=== PATIENT | female | born 1950 ===

== ENCOUNTER 2020-10-01 18:10 | Inpatient (IN) ==
[2020-10-01] MEDS ORDERED: ONDANSETRON 4 MG/2 ML VIAL IV STA (18:43)
[2020-10-01] MEDS ORDERED: PANTOPRAZOLE 40 MG VIAL IV STA (18:43)
[2020-10-01] MEDS ORDERED: SODIUM CHLORIDE 0.9% 500 ML IV STA (18:43)
[2020-10-01 19:42] LABS: Basophils % 0.5 % (0.0-0.8); Eosinophils # 0.1 10*3/uL (0.0-0.87); Eosinophils % 0.9 % (0.00-10.9); Hematocrit 42.9 VOL% (35.7-47.0); Hemoglobin 14.4 GM/DL (12.0-16.0); Immature Granulocytes % 0.9 %; Immature Granulocytes Absolute 0.07 #; Lymphocytes # 0.9 10*3/uL (1.4-4.0); Lymphocytes % 11.1 % (21.3-54.2); Mean Corpuscular HGB Conc 33.6 GM/DL (32-36); Mean Platelet Volume 10.2 FL (9.6-12.0); Monocytes % 9.4 % (1.7-12.7); Neutrophils % 77.2 % (38.7-73.9); Platelet Count 245 T/CUMM (130-400); Red Blood Count 4.47 MC/CUMM (3.8-5.5); Red Cell Distribution Width 13.4 % (9.3-17.3); White Blood Count 7.8 T/CUMM (4-12)
[2020-10-01 20:40] LABS: Albumin 2.8 G/DL (3.4-5.0); Bilirubin,Total 5.7 MG/DL (0.2-1.0); Calcium 8.8 MG/DL (8.5-10.1); Osmolality,Calculated 276.5 MOS/KG (273-304); Potassium 3.5 MMOL/L (3.5-5.1); Total Protein 6.5 G/DL (6.4-8.2)
[2020-10-01] MEDS ORDERED: ONDANSETRON 4 MG/2 ML VIAL IV PRN (21:57)
[2020-10-01] MEDS ORDERED: GLUCAGON 1 MG VIAL IM PRN (21:57)
[2020-10-01] MEDS ORDERED: DEXTROSE 50% 25 GM/50 ML VIAL IV PRN (21:57)
[2020-10-01] MEDS ORDERED: PIPERACILLIN/TAZOBACTAM 3,375 MG VIAL IV ONE (23:41)
[2020-10-02 00:24] LABS: Bacteria,Urine Occasional /HPF (Few); Blood, Urine Negative (Negative); Glucose,Urine (UA) Negative (Negative); Ketones,Urine Negative (Negative); Mucus,Urine Few /LPF (Occasional); Nitrite,Urine Negative (Negative); Protein,Urine Negative; RBC,Urine 1 /HPF (0-4); Squamous Epithelial Cell,Urine Occasional /HPF (0-10); Urine Appearance CLEAR (Clear); Urine Color Amber (Yellow); Urine Specific Gravity 1.011 (1.001-1.035); Urine Urobilinogen < 2.0 EU/DL (0.2-1.0)
[2020-10-02 00:27] LABS: Bilirubin,Urine Small mg/dL (Negative)
[2020-10-02] MEDS ORDERED: SODIUM CHLORIDE 0.9% 1,000 ML IV ONE (01:26)
[2020-10-02] MEDS ORDERED: MORPHINE 4 MG/1 ML VIAL IV PRN ×2 (02:12→02:26)
[2020-10-02] MEDS: PIPERACILLIN/TAZOBACTAM 3.375 MG in SODIUM CHLORIDE 0.9% 100 ML IV SCH ×4 (02:38→23:45)
[2020-10-02] MEDS: SODIUM CHLORIDE 0.9% 1,000 ML IV SCH ×3 (03:06→14:54)
[2020-10-02 05:51] LABS: Basophils % 0.3 % (0.0-0.8); Eosinophils # 0.1 10*3/uL (0.0-0.87); Eosinophils % 1.1 % (0.00-10.9); Hemoglobin 12.8 GM/DL (12.0-16.0); Immature Granulocytes % 0.8 %; Immature Granulocytes Absolute 0.06 #; Lymphocytes # 0.7 10*3/uL (1.4-4.0); Lymphocytes % 9.5 % (21.3-54.2); Mean Corpuscular HGB Conc 33.7 GM/DL (32-36); Mean Platelet Volume 9.8 FL (9.6-12.0); Monocytes % 8.4 % (1.7-12.7); Neutrophils % 79.9 % (38.7-73.9); Platelet Count 209 T/CUMM (130-400); Red Blood Count 3.96 MC/CUMM (3.8-5.5); Red Cell Distribution Width 13.6 % (9.3-17.3); White Blood Count 7.1 T/CUMM (4-12)
[2020-10-02 06:09] LABS: PT Patient Result 11.4 SECS (10.5-12.0); Partial Thromboplastin Time 26.3 SECS (23.9-33.8)
[2020-10-02 06:17] LABS: Albumin 2.2 G/DL (3.4-5.0); Bilirubin,Total 5.8 MG/DL (0.2-1.0); Calcium 8.2 MG/DL (8.5-10.1); Osmolality,Calculated 278.4 MOS/KG (273-304); Potassium 3.5 MMOL/L (3.5-5.1); Total Protein 6.1 G/DL (6.4-8.2)
[2020-10-02] MEDS: amLODIPine 5 MG TABLET PO SCH (09:52)
[2020-10-02] MEDS: ATROPINE 1 % OPH SOLN 5 ML BOTTLE RIGHT EYE SCH (14:53)
[2020-10-02] MEDS: BIMATOPROST 0.01% OPH SOLN 2.5 ML BOTTLE RIGHT EYE SCH ×2 (14:53→21:37)
[2020-10-02] MEDS: OFLOXACIN 0.3% OPH SOLN 5 ML BOTTLE RIGHT EYE SCH ×2 (14:53→21:37)
[2020-10-02] MEDS ORDERED: ENOXAPARIN 40 MG/0.4 ML SYRINGE SUBCUT SCH (21:00)
[2020-10-03] MEDS: ATROPINE 1 % OPH SOLN 5 ML BOTTLE RIGHT EYE SCH ×3 (01:18→20:48)
[2020-10-03 05:48] LABS: Basophils % 0.4 % (0.0-0.8); Eosinophils # 0.1 10*3/uL (0.0-0.87); Eosinophils % 1.5 % (0.00-10.9); Hematocrit 38.3 VOL% (35.7-47.0); Hemoglobin 12.6 GM/DL (12.0-16.0); Immature Granulocytes % 1.7 %; Immature Granulocytes Absolute 0.12 #; Lymphocytes # 0.7 10*3/uL (1.4-4.0); Lymphocytes % 9.6 % (21.3-54.2); Mean Corpuscular HGB Conc 32.9 GM/DL (32-36); Mean Platelet Volume 9.9 FL (9.6-12.0); Monocytes % 7.3 % (1.7-12.7); Neutrophils % 79.5 % (38.7-73.9); Platelet Count 215 T/CUMM (130-400); Red Blood Count 3.95 MC/CUMM (3.8-5.5); Red Cell Distribution Width 13.9 % (9.3-17.3); White Blood Count 6.9 T/CUMM (4-12)
[2020-10-03 05:56] LABS: PT Patient Result 11.4 SECS (10.5-12.0)
[2020-10-03 06:06] LABS: Albumin 2.2 G/DL (3.4-5.0); Bilirubin,Total 6.6 MG/DL (0.2-1.0); Calcium 8.4 MG/DL (8.5-10.1); Osmolality,Calculated 282.1 MOS/KG (273-304); Potassium 3.7 MMOL/L (3.5-5.1); Total Protein 5.9 G/DL (6.4-8.2)
[2020-10-03] MEDS: PIPERACILLIN/TAZOBACTAM 3.375 MG in SODIUM CHLORIDE 0.9% 100 ML IV SCH ×2 (06:44→20:42)
[2020-10-03 08:32] LABS: Hepatitis B Core IgM Quant 0.08 Index; Hepatitis B Surface Ag Quant < 0.10 Index; Hepatitis B Surface Ag Result Non-Reactive (NonReactive); Hepatitis C Virus Ab Quant 0.04 Index; Hepatitis C Virus Ab Result Non-Reactive (NonReactive)
[2020-10-03] MEDS: OFLOXACIN 0.3% OPH SOLN 5 ML BOTTLE RIGHT EYE SCH ×2 (09:10→20:39)
[2020-10-03] MEDS: amLODIPine 5 MG TABLET PO SCH (09:10)
[2020-10-03] MEDS ORDERED: hydrALAZINE 20 MG/1 ML VIAL IV PRN (15:20)
[2020-10-03] MEDS: SODIUM CHLORIDE 0.9% 1,000 ML IV SCH (16:56)
[2020-10-03] MEDS: prednisoLONE ACETATE 1% OPH SUSP 5 ML BOTTLE RIGHT EYE SCH ×5 (16:56→23:22)
[2020-10-03] MEDS: BIMATOPROST 0.01% OPH SOLN 2.5 ML BOTTLE RIGHT EYE SCH (20:39)
[2020-10-03] MEDS: acetaZOLAMIDE 250 MG TABLET PO SCH (20:41)
[2020-10-03] MEDS: TIMOLOL 0.5% OPH SOLN 5 ML BOTTLE RIGHT EYE SCH (20:48)
[2020-10-04] MEDS: SODIUM CHLORIDE 0.9% 1,000 ML IV SCH ×3 (01:43→23:02)
[2020-10-04] MEDS: prednisoLONE ACETATE 1% OPH SUSP 5 ML BOTTLE RIGHT EYE SCH ×12 (01:44→23:03)
[2020-10-04 05:17] LABS: Basophils % 0.5 % (0.0-0.8); Eosinophils # 0.2 10*3/uL (0.0-0.87); Eosinophils % 3.2 % (0.00-10.9); Hematocrit 38.4 VOL% (35.7-47.0); Hemoglobin 12.7 GM/DL (12.0-16.0); Immature Granulocytes % 2.3 %; Immature Granulocytes Absolute 0.17 #; Lymphocytes # 0.7 10*3/uL (1.4-4.0); Lymphocytes % 9.3 % (21.3-54.2); Mean Corpuscular HGB Conc 33.1 GM/DL (32-36); Mean Corpuscular Volume 94.6 FL (87-102); Mean Platelet Volume 9.9 FL (9.6-12.0); Monocytes % 7.4 % (1.7-12.7); Neutrophils % 77.3 % (38.7-73.9); Platelet Count 241 T/CUMM (130-400); Red Blood Count 4.06 MC/CUMM (3.8-5.5); Red Cell Distribution Width 13.9 % (9.3-17.3); White Blood Count 7.5 T/CUMM (4-12)
[2020-10-04 05:29] LABS: PT Patient Result 11.5 SECS (10.5-12.0)
[2020-10-04] MEDS: PIPERACILLIN/TAZOBACTAM 3.375 MG in SODIUM CHLORIDE 0.9% 100 ML IV SCH ×2 (05:54→16:30)
[2020-10-04 05:56] LABS: Albumin 2.1 G/DL (3.4-5.0); Calcium 8.2 MG/DL (8.5-10.1); Osmolality,Calculated 284.3 MOS/KG (273-304); Potassium 3.4 MMOL/L (3.5-5.1); Total Protein 5.9 G/DL (6.4-8.2)
[2020-10-04] MEDS ORDERED: INDOMETHACIN SUPP 50 MG SUPP RECTAL ONE ×2 (06:24→08:00)
[2020-10-04] MEDS ORDERED: hydrALAZINE 20 MG/1 ML VIAL IV PRN (08:37)
[2020-10-04] MEDS: acetaZOLAMIDE 250 MG TABLET PO SCH ×3 (08:38→20:30)
[2020-10-04] MEDS: SPIRONOLACTONE 25 MG TABLET PO SCH (08:39)
[2020-10-04] MEDS: amLODIPine 5 MG TABLET PO SCH (08:39)
[2020-10-04] MEDS: OFLOXACIN 0.3% OPH SOLN 5 ML BOTTLE RIGHT EYE SCH ×2 (10:13→20:30)
[2020-10-04] MEDS: TIMOLOL 0.5% OPH SOLN 5 ML BOTTLE RIGHT EYE SCH ×2 (10:13→20:31)
[2020-10-04] MEDS: ATROPINE 1 % OPH SOLN 5 ML BOTTLE RIGHT EYE SCH ×2 (10:13→20:30)
[2020-10-04] MEDS: POTASSIUM CHLORIDE RIDER 10 MEQ/100 ML PREMIX IV SCH ×2 (10:43→14:51)
[2020-10-04] MEDS: LACTATED RINGERS 1,000 ML IV SCH (12:50)
[2020-10-04] MEDS ORDERED: fentaNYL 100 MCG/2 ML VIAL ONE ×2 (13:47→14:48)
[2020-10-04] MEDS ORDERED: ePHEDrine 50 MG/ML VIAL ONE (13:52)
[2020-10-04] MEDS ORDERED: GLYCOPYRROLATE 0.4 MG/2 ML VIAL ONE ×2 (14:47→14:51)
[2020-10-04] MEDS ORDERED: NEOSTIGMINE 10 MG/10 ML VIAL ONE (14:47)
[2020-10-04] MEDS ORDERED: DEXAMETHASONE 4 MG/1 ML VIAL ONE (14:48)
[2020-10-04] MEDS ORDERED: ONDANSETRON 4 MG/2 ML VIAL ONE (14:48)
[2020-10-04] MEDS ORDERED: propofoL 200 MG/20 ML VIAL IV ONE (14:48)
[2020-10-04] MEDS ORDERED: SEVOFLURANE 1 UNIT/15 MINUTE INH ONE (14:52)
[2020-10-04] MEDS: BIMATOPROST 0.01% OPH SOLN 2.5 ML BOTTLE RIGHT EYE SCH (20:30)
[2020-10-05] MEDS: prednisoLONE ACETATE 1% OPH SUSP 5 ML BOTTLE RIGHT EYE SCH ×12 (01:40→23:35)
[2020-10-05 05:49] LABS: Basophils % 0.2 % (0.0-0.8); Eosinophils % 0.2 % (0.00-10.9); Hematocrit 36.7 VOL% (35.7-47.0); Hemoglobin 12.3 GM/DL (12.0-16.0); Immature Granulocytes % 4.2 %; Immature Granulocytes Absolute 0.23 #; Lymphocytes # 0.6 10*3/uL (1.4-4.0); Lymphocytes % 10.2 % (21.3-54.2); Mean Corpuscular HGB Conc 33.5 GM/DL (32-36); Mean Corpuscular Volume 95.3 FL (87-102); Mean Platelet Volume 10.2 FL (9.6-12.0); Neutrophils % 79.2 % (38.7-73.9); Platelet Count 240 T/CUMM (130-400); Red Blood Count 3.85 MC/CUMM (3.8-5.5); Red Cell Distribution Width 14.4 % (9.3-17.3); White Blood Count 5.5 T/CUMM (4-12)
[2020-10-05 06:16] LABS: Albumin 2.1 G/DL (3.4-5.0); Bilirubin,Total 2.9 MG/DL (0.2-1.0); Calcium 8.2 MG/DL (8.5-10.1); Osmolality,Calculated 278.5 MOS/KG (273-304); Potassium 3.6 MMOL/L (3.5-5.1); Total Protein 6.2 G/DL (6.4-8.2)
[2020-10-05] MEDS: SODIUM CHLORIDE 0.9% 1,000 ML IV SCH ×2 (07:39→15:18)
[2020-10-05] MEDS: LACTATED RINGERS 1,000 ML IV SCH (07:39)
[2020-10-05] MEDS: acetaZOLAMIDE 250 MG TABLET PO SCH ×3 (08:42→20:23)
[2020-10-05] MEDS: SPIRONOLACTONE 25 MG TABLET PO SCH (08:42)
[2020-10-05] MEDS: amLODIPine 5 MG TABLET PO SCH (08:42)
[2020-10-05] MEDS: ATROPINE 1 % OPH SOLN 5 ML BOTTLE RIGHT EYE SCH ×2 (08:45→20:23)
[2020-10-05] MEDS: TIMOLOL 0.5% OPH SOLN 5 ML BOTTLE RIGHT EYE SCH ×2 (08:45→20:23)
[2020-10-05] MEDS: OFLOXACIN 0.3% OPH SOLN 5 ML BOTTLE RIGHT EYE SCH ×2 (08:45→20:24)
[2020-10-05] MEDS ORDERED: ROCURONIUM 50 MG/5 ML VIAL IV ONE (09:41)
[2020-10-05] MEDS ORDERED: propofoL 200 MG/20 ML VIAL IV ONE (09:41)
[2020-10-05] MEDS ORDERED: fentaNYL 100 MCG/2 ML VIAL ONE (09:41)
[2020-10-05] MEDS ORDERED: LIDOCAINE 2% 5 ML VIAL ONE (09:41)
[2020-10-05] MEDS ORDERED: ONDANSETRON 4 MG/2 ML VIAL ONE (09:42)
[2020-10-05] MEDS ORDERED: GLYCOPYRROLATE 0.4 MG/2 ML VIAL ONE (09:51)
[2020-10-05] MEDS ORDERED: TISSUE ADHESIVE 1 EACH APPLICATOR TOP ONE (09:51)
[2020-10-05] MEDS ORDERED: NEOSTIGMINE 10 MG/10 ML VIAL ONE (09:52)
[2020-10-05] MEDS ORDERED: DEXAMETHASONE 4 MG/1 ML VIAL ONE (10:28)
[2020-10-05] MEDS ORDERED: hydrALAZINE 20 MG/1 ML VIAL ONE (10:41)
[2020-10-05] MEDS ORDERED: ePHEDrine 50 MG/ML VIAL ONE (10:59)
[2020-10-05] MEDS ORDERED: LACTATED RINGERS 1,000 ML IV ONE (11:08)
[2020-10-05] MEDS ORDERED: SEVOFLURANE 1 UNIT/15 MINUTE INH ONE (11:52)
[2020-10-05] MEDS ORDERED: HYDROmorphone 2 MG/1 ML VIAL IV PRN ×2 (12:19→12:22)
[2020-10-05] MEDS ORDERED: ONDANSETRON 4 MG/2 ML VIAL IV PRN (12:22)
[2020-10-05] MEDS ORDERED: HYDROmorphone 2 MG/1 ML VIAL IV SCH (12:30)
[2020-10-05] MEDS ORDERED: ENOXAPARIN 40 MG/0.4 ML SYRINGE SUBCUT SCH (16:00)
[2020-10-05] MEDS ORDERED: ACETAMINOPHEN 500 MG TABLET PO PRN (19:00)
[2020-10-05] MEDS: BIMATOPROST 0.01% OPH SOLN 2.5 ML BOTTLE RIGHT EYE SCH (20:23)
[2020-10-06] MEDS: SODIUM CHLORIDE 0.9% 1,000 ML IV SCH ×2 (01:17→09:04)
[2020-10-06] MEDS: prednisoLONE ACETATE 1% OPH SUSP 5 ML BOTTLE RIGHT EYE SCH ×7 (01:17→13:17)
[2020-10-06 06:17] LABS: Basophils % 0.2 % (0.0-0.8); Hematocrit 37.6 VOL% (35.7-47.0); Immature Granulocytes Absolute 0.19 #; Lymphocytes # 0.7 10*3/uL (1.4-4.0); Lymphocytes % 7.9 % (21.3-54.2); Mean Corpuscular HGB Conc 31.9 GM/DL (32-36); Mean Corpuscular Volume 98.4 FL (87-102); Mean Platelet Volume 10.3 FL (9.6-12.0); Monocytes % 7.9 % (1.7-12.7); Platelet Count 266 T/CUMM (130-400); Red Blood Count 3.82 MC/CUMM (3.8-5.5)
[2020-10-06 06:29] LABS: Albumin 2.1 G/DL (3.4-5.0); Bilirubin,Direct 1.22 MG/DL (0.0-0.20); Bilirubin,Indirect 1.1 MG/DL (0.0-1.0); Bilirubin,Total 2.3 MG/DL (0.2-1.0)
[2020-10-06 06:31] LABS: Albumin 2.2 G/DL (3.4-5.0); Bilirubin,Total 2.8 MG/DL (0.2-1.0); Osmolality,Calculated 281.4 MOS/KG (273-304); Potassium 3.5 MMOL/L (3.5-5.1); Total Protein 6.1 G/DL (6.4-8.2)
[2020-10-06 06:33] LABS: White Blood Count 9.3 T/CUMM (4-12)
[2020-10-06 06:49] LABS: Hypochromasia Slight
[2020-10-06 06:50] LABS: Microcytosis Slight; Platelet Estimate Normal
[2020-10-06] MEDS: acetaZOLAMIDE 250 MG TABLET PO SCH (09:05)
[2020-10-06] MEDS: amLODIPine 5 MG TABLET PO SCH (09:05)
[2020-10-06] MEDS: SPIRONOLACTONE 25 MG TABLET PO SCH (09:05)
[2020-10-06] MEDS: ATROPINE 1 % OPH SOLN 5 ML BOTTLE RIGHT EYE SCH (09:06)
[2020-10-06] MEDS: TIMOLOL 0.5% OPH SOLN 5 ML BOTTLE RIGHT EYE SCH (09:06)
[2020-10-06] MEDS: OFLOXACIN 0.3% OPH SOLN 5 ML BOTTLE RIGHT EYE SCH (09:06)
[2020-10-06] MEDS: LACTATED RINGERS 1,000 ML IV SCH (09:54)
[2020-10-06 13:03] VITALS: BP 149/85
== END 2020-10-06 14:16 | disposition home or self-care (01) | DRG 418 ==
LOC: EDBD → EDUNIT# → N.ED 18:10 → N.EDINP 21:57 → SUATTDRO 21:57 → N.3E 10-02 00:57
PROVIDERS: ADMIT Internal Medicine; ATTEND Internal Medicine
PROC: ERCPWSP (ICD-10-PCS; 2020-10-04 12:05)
PROC: LAPCHOL (2020-10-05 10:06)